=== PATIENT | female | born 1990 | race Caucasian/White ===

== ENCOUNTER 2021-07-26 11:53 | Emergency (ER) | payer BC ==
[~2021-07-26] VITALS: Ht 157.5 cm; Wt 59.0 kg
[2021-07-26 11:58] VITALS: BP_SYST 129
--- NOTE | 2021-07-26 14:38 | NUR ---
Patient to ER bed 02 to gown for evaluation. Side rails up.
--- NOTE | 2021-07-26 14:45 | NUR ---
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 of cardiac issues in her family so wanted to be evaluated.
--- NOTE | 2021-07-26 14:55 | NUR ---
ER at bedside examining patient.
--- NOTE | 2021-07-26 15:05 | NUR ---
chest xray at bedside
[2021-07-26 15:57] LABS: BARBITURATE, URINE NEGATIVE (NEG <=200); BENZODIAZEPINE, URINE NEGATIVE (NEG <=150); CANNABINOID, URINE NEGATIVE (NEG <=50); COCAINE, URINE NEGATIVE (NEG <=150); METHAMPHETAMINES SCREEN,URINE NEGATIVE (NEG <=500); OPIATE, URINE NEGATIVE (NEG <=100); PHENCYCLIDINE SCREEN,URINE NEGATIVE (NEG <=25); UR TRICYCLIC ANTIDEPRESSANTS NEGATIVE (NEG <=300); URINE AMPHETAMINE NEGATIVE (NEG <=500); URINE METHADONE NEGATIVE (NEG <=200); URINE OXYCODONE SCREEN NEGATIVE (NEG <=100); URINE PROPOXYPHENE SCREEN NEGATIVE (NEG <=300)
[2021-07-26 16:10] LABS: BASOPHILS % (AUTO) 0.5 % (0.0-2.0); EOSINOPHILS % (AUTO) 0.7 % (0.0-4.0); HEMATOCRIT 42.3 % (36-48); HEMOGLOBIN 14.4 g/dL (12.0-16.0); LYMPHOCYTES # (AUTO) 1.5 K/uL (1.0-5.5); LYMPHOCYTES % (AUTO) 28.7 % (20.5-51.5); MEAN CORPUSCULAR HEMOGLOBIN 31 pg (27-31); MEAN CORPUSCULAR HGB CONC 34 % (32-36); MEAN CORPUSCULAR VOLUME 91 fL (79.0-98.0); MONOCYTES # (AUTO) 0.4 K/uL (0.0-1.0); MONOCYTES % (AUTO) 7.3 % (1.7-9.3); NEUTROPHILS # (AUTO) 3.4 K/uL (1.8-7.7); NEUTROPHILS % (AUTO) 62.8 % (40.0-70.0); PLATELET COUNT (AUTO) 201 K/uL (130-430); RED BLOOD CELL COUNT(AUTO) 4.64 MIL/uL (4.2-6.2); RED CELL DISTRIBUTION WIDTH 11.7 % (9.0-15.0); WHITE BLOOD COUNT (AUTO) 5.3 K/uL (4.8-10.8)
[2021-07-26 16:16] LABS: CALCIUM 8.8 mg/dL (8.4-11.0); CREATININE 0.67 mg/dL (0.55-1.30); POTASSIUM 3.6 mmol/L (3.5-5.1)
[2021-07-26 16:31] LABS: FREE T4 (FREE THYROXINE) 1.1 ng/dl (0.8-1.5); THYROID STIMULATING HORMONE 1.57 uIu/mL (0.36-3.74); TOTAL BILIRUBIN 1.4 mg/dL (0.0-1.0)
[2021-07-26 16:59] LABS: PROTHROMBIN TIME 10.4 SECS (9.5-12.5)
[2021-07-26 17:33] VITALS: BP_SYST 123
--- NOTE | 2021-07-26 17:34 | NUR ---
Patient given written and verbal discharge instructions and verbalizes understanding. discussed with patient the results and treatment provided. Patient in stable condition. ID arm band removed. IV catheter removed intact and dressing applied, no active bleeding. Rx of given. Patient educated on pain management and to follow up with PMD. Pain Scale 0. Opportunity for questions provided and answered. Medication side effect fact sheet provided.
== END 2021-07-26 17:34 | disposition home or self-care (01) ==
LOC: SED 11:53
DX: R00.2 Palpitations (principal); Z88.0 Allergy status to penicillin; Z79.899 Other long term (current) drug therapy
CPT/HCPCS: 36415; 71045; 80053; 80307; 81025; 84439; 84443; 84484; 85025; 85610-TC; 85730-TC; 93005; 99285

== ENCOUNTER 2024-08-26 11:21 | Emergency (ER) | payer BC ==
[~2024-08-26] VITALS: Ht 157.5 cm; Wt 61.2 kg
[2024-08-26 11:33] VITALS: BP_SYST 128; PULSE 99; RESP 20; TEMP 98.2; O2SAT 99
[2024-08-26] MEDS: KETOROLAC TROMETHAMINE 60 MG/2 ML VIAL IM ONE (15:00)
[2024-08-26] MEDS ORDERED: IBUP-1969 PO (15:35)
[2024-08-26] MEDS ORDERED: TRAM50TA2 PO (15:35)
[2024-08-26 16:04] VITALS: BP_SYST 128; PULSE 99; RESP 20; TEMP 98.2; O2SAT 99
== END 2024-08-26 16:04 | disposition home or self-care (01) ==
LOC: SED 11:21
DX: M54.50 Low back pain, unspecified (principal); Z88.0 Allergy status to penicillin
CPT/HCPCS: 99283; 72100; 81025; 96372; J1885